=== PATIENT | female | born 1955 | race Caucasian/White ===

== ENCOUNTER 2021-11-17 08:27 | Day surgery (SDC) | payer MEDICARE, SELFPAY ==
[2021-11-11 16:27] VITALS: BMI 31.4
--- NOTE | 2021-11-14 18:05 | HP_ITS ---
DATE OF SERVICE: 11/17/2021 PREOPERATIVE DIAGNOSIS: Hallux abductovalgus deformity, left foot. PLANNED PROCEDURE: Left foot Shaniqua bunionectomy. PAST MEDICAL HISTORY: Significant for osteoarthritis; hip, back, and knee pain; broken bones; cancer; cataracts; diverticulosis; gallbladder disease; measles; mumps; chickenpox; kidney disease; liver disease; GERD; thyroid disease; and transfusions. CURRENT MEDICATIONS: Viactiv, Centrum Silver, atorvastatin, and levothyroxine. PAST SURGICAL HISTORY: Hemithyroidectomy in 2009, a lumpectomy, axillary dissection, and cataract surgery. FAMILY HISTORY: Significant for hypertension, heart disease, arthritis, diabetes, and cancer. SOCIAL HISTORY: The patient is a nonsmoker. She denies any illicit drug use. 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 ALLERGIES: PENICILLIN, MORPHINE, NASAL SPRAY, SIMVASTATIN, AND AMOXICILLIN.??? She was hospitalized at [facility] for esophagus problems and GI problems in 2020. REVIEW OF SYSTEMS: Within normal limits. HISTORY OF PRESENT ILLNESS: This is a 66-year-old female, who presents with aching and tenderness in her left great toe joint that has been present for several years that is gradually getting progressively worse; pain with standing, walking, any pressure. She has tried rest and changed shoes without any significant relief in symptoms. PHYSICAL EXAM: GENERAL: A pleasant, alert, well-nourished, well-developed, well-hydrated individual, who demonstrates proper attention to hygiene and body habitus. She is in no acute distress. She is oriented x3. NEUROLOGICAL: Intact sensorium. Pain sensation is normal. Vibratory sensation is intact. Pinprick sensation is normal. The patient denies any anesthesias, burning, paresthesias, or tingling bilaterally. VASCULAR: DP and PT pulses are 3/4 bilaterally. Capillary refill is immediate to all digits. Skin temperature, elasticity, and turgor are normal bilaterally. Pigmentation is normal and there is no edema. DERMATOLOGICAL: Normal texture, elasticity, and turgor. There are no masses. Interspaces are clear. ORTHOPEDIC: Muscle strength is 5/5 in a symmetrical fashion. There is a medially prominent 1st metatarsophalangeal joint with pain on palpation and lateral tracking of the 1st MPJ, is incompletely reducible most significantly on the left foot. X-rays which were taken at a previous visit reveal normal soft tissue density and bone structure consistent with patient's age and sex. There is an increased 1st intermetatarsal angle and hallux abductus angle consistent with bunion deformity, hypertrophy of the dorsal medial 1st metatarsal head without subchondral assisting and there is a tibial sesamoid position #6. PLAN: Patient has been discussed several types of bunion surgeries. We discussed the potential risks of surgery versus not having surgery; the potential surgical complications, which are including, but not limited to pain, swelling, bleeding, scarring, numbness, infection; delayed or nonhealing, floppy, unstable, or shortened toe; recurrence; failure of the procedure; over-correction leading to plantar flexor downward position of toe; need for further surgery as well as the possibility of loss of toe, foot, life, or limb. We discussed use of local and IV anesthesia and the usual postoperative course. No guarantees were given. The patient's questions were answered to her satisfaction. We decided on performing a Shaniqua bunionectomy to the left foot based on the patient's complaints, medical and social history, physical exam, and x-ray analysis. The patient would like to proceed with surgery. She will obtain preoperative labs and medical clearance for surgery and anesthesia from her primary care physician. She is made aware to stop any and all blood thinners including [id number] fish oil and aspirin at least 1 week prior to surgery. I made aware of the fact that driving may not be allowed during a portion of postop period and not to utilize any smoking, tobacco products. The patient deferred any narcotic pain medication and recommended staggering taking alternating Extra-Strength Tylenol and Motrin 800 mg as needed postoperatively. A prescription for 800 mg ibuprofen was sent to the patient's pharmacy. The patient will be partial weightbearing to the left foot in a surgical shoe and crutches, which she will be given at the hospital. Radha Escobar DPM LP/SHARON / [id number]
--- NOTE | 2021-11-16 10:55 | HO.ANESPROP2 ---
Documented by User: Génesis Gupta NP 11/16/21 10:58 HPI - Anesthesia Eval Consult details Narrative: 66yo F for Left Bunionectomy-Shaniqua Optimized per PCP [facility] Past Medical History Medical History Elevated cholesterol History of palpitations Hypothyroidism Kidney cysts Liver cyst Pre-diabetes Renal calculi Thoracic spondylosis Surgical History Surgical History Hx of breast biopsy Hx of breast surgery Hx of cataract extraction Hx of colonoscopy Hx of cystoscopy Hx of lithotripsy Hx of thyroidectomy Social History Social History Are you a primary child care associate teacher to a significant other at home: No Do you presently have visiting nurse or other home services: No Patient Tobacco Use Status: Never used Tobacco Are you DNR?: No Advance Directives: No Advance Directives Information Provided: Yes Advance Directives on File: No Recently lost weight without trying: No Nutrition Risks: No Nutritional Risk Meds Allergies Allergy/AdvReac Type Severity Reaction Status Date / Time amoxicillin Allergy Intermediate Rash Verified 11/17/21 08:49 morphine AdvReac Intermediate Nausea and Verified 11/17/21 08:49 Vomiting pravastatin AdvReac Intermediate Muscle Pain Verified 11/17/21 08:49 simvastatin AdvReac Intermediate Muscle Pain Verified 11/17/21 08:49 Active Medications: Current Medications Vancomycin HCl 1,000 mg/ (Sodium Chloride) 270 mls @ 270 mls/hr IV PREOP ONE Stop: 11/16/21 11:18 Home Medications Medication Instructions Recorded Confirmed Last Taken Type Viactiv DAILY 11/11/21 Unknown History atorvastatin 20 mg tablet 20 mg PO DAILY 11/11/21 11/11/21 Unknown History levothyroxine 100 mcg tablet 100 mcg PO DAILY 11/11/21 11/11/21 11/17/21 05:00 History multivitamin 1 tab PO DAILY 11/11/21 11/11/21 Unknown History Exam Exam Date and Time: November 16, 2021 1055 Height,Weight and Vital Signs: Height 5 ft 3.5 in Weight 81.647 kg Assessment and Plan Assessment Anesthesia Assessment: Chart Reviewed Documented by User: Harrison Britt MD 11/17/21 10:27 [facility] Past Medical History Medical History Elevated cholesterol History of palpitations Hypothyroidism Kidney cysts Liver cyst Pre-diabetes Renal calculi Thoracic spondylosis Family History Family history of problems with anesthesia: No Surgical History Surgical History Hx of breast biopsy Hx of breast surgery Hx of cataract extraction Hx of colonoscopy Hx of cystoscopy Hx of lithotripsy Hx of thyroidectomy History of Problems with Anesthesia: No Social History Social History Are you a primary child care associate teacher to a significant other at home: No Do you presently have visiting nurse or other home services: No Patient Tobacco Use Status: Never used Tobacco Are you DNR?: No Advance Directives: No Advance Directives Information Provided: Yes Advance Directives on File: No Recently lost weight without trying: No Nutrition Risks: No Nutritional Risk Meds Allergies Allergy/AdvReac Type Severity Reaction Status Date / Time amoxicillin Allergy Intermediate Rash Verified 11/17/21 08:49 morphine AdvReac Intermediate Nausea and Verified 11/17/21 08:49 Vomiting pravastatin AdvReac Intermediate Muscle Pain Verified 11/17/21 08:49 simvastatin AdvReac Intermediate Muscle Pain Verified 11/17/21 08:49 Home Medications Medication Instructions Recorded Confirmed Last Taken Type Viactiv DAILY 11/11/21 Unknown History atorvastatin 20 mg tablet 20 mg PO DAILY 11/11/21 11/11/21 Unknown History levothyroxine 100 mcg tablet 100 mcg PO DAILY 11/11/21 11/11/21 11/17/21 05:00 History multivitamin 1 tab PO DAILY 11/11/21 11/11/21 Unknown History Exam Airway Mallampati Class: III TM Dist: >3cm Neck ROM: Full Loose/Missing/Broken Teeth: Yes Assessment and Plan Assessment Anesthesia Assessment: Anesthesia Plan Discussed Final Anesthetic Review Family History of Problems with Anesthesia: No History of Problems with Anesthesia: No NPO: Yes ASA Class: II Final Preanesthetic Review: No Changes in Pt Med Stat, Meds/Allgs Chart Reviewed, Consent Obtained/Reviewed and Anes Risks/Benef Reviewed Patient Risk: Low Procedure Risk: Low Anesthetic Plan Anesthetic Plan: MAC: Disposition: Standard PACU
[2021-11-17 09:08] VITALS: BP 105/87; PULSE 58; RESP 16; TEMP 37.1; O2SAT 98
[2021-11-17] MEDS: Lactated Ringers 1,000 ML 100 ML IVCONT (09:32)
[2021-11-17] MEDS: vancomycin HCL 1,500 MG in 0.9 % Sodium Chloride 500 ML 333.33 MG IV (09:33)
--- NOTE | 2021-11-17 10:05 | MHC.SHP ---
Pre-Procedural Eval Section A Date of Service: 11/17/21 The patient is an INPATIENT: No Changes since office visit: No Cold of Flu in the past 2 weeks, No New Medical Problems, No Changes in Medication and No Patient answered all questions The History & Physical has been completed within 30 days and I have reviewed it.: Yes Section B Chief Complaint: hallux valgus Allergies: Allergies Allergy/AdvReac Type Severity Reaction Status Date / Time amoxicillin Allergy Intermediate Rash Verified 11/17/21 08:49 morphine AdvReac Intermediate Nausea and Verified 11/17/21 08:49 Vomiting pravastatin AdvReac Intermediate Muscle Pain Verified 11/17/21 08:49 simvastatin AdvReac Intermediate Muscle Pain Verified 11/17/21 08:49 Plan I have reviewed the history and physical and performed a pertinent physical examination on my patient. No changes have occurred unless specified.
--- NOTE | 2021-11-17 11:07 | P.BOP_ITS ---
Brief Operative Note Date of Service: 11/17/21 Pre-op diagnosis: Hallux abducto valgus left Post-op diagnosis: same Procedure: Left Shaniqua Bunionecotmy Implants: [place] asnis screws Surgeon: Radha Escobar Anesthesia: MAC and local Was an Promotions Associate used for this Procedure?: Yes Promotions Associate: Pankaj Villela Estimated blood loss (mL): 5 Tourniquet time (min): 19 Pathology: other Condition: stable Disposition: PACU
[2021-11-17 11:10] VITALS: BP 121/63; PULSE 71; RESP 14; TEMP 36.9; O2SAT 97
[2021-11-17 11:25] VITALS: BP 141/67; PULSE 58; RESP 16; TEMP 36.9; O2SAT 99
--- NOTE | 2021-11-17 12:17 | OP_ITS ---
SURGEON: Radha Escobar DPM PREOPERATIVE DIAGNOSIS: Hallux abductovalgus deformity, left foot. POSTOPERATIVE DIAGNOSIS: Hallux abductovalgus deformity, left foot. PROCEDURE PERFORMED: Left foot Shaniqua bunionectomy with sesamoidectomy, left foot. ESTIMATED BLOOD LOSS: Less than 5 cc. COMPLICATIONS: None. ANESTHESIA: Monitored anesthetic care, local consisting preoperatively of 18 cc of 1:1 mixture of 0.5% Marcaine plain and 2% lidocaine plain and postoperatively of 0.5% Marcaine plain and 1 cc of dexamethasone. HEMOSTASIS: Pneumatic ankle tourniquet set at 220 mmHg for 19 minutes. SUPERVISOR EDGING: Pankaj Villela DPM. SPECIMEN: Bone, left foot. INDICATIONS FOR SURGERY: The patient had a painful bunion deformity noted to the left foot that has been present for some time and has failed conservative therapies. The above-mentioned surgeries were discussed with detail with patient including risks, benefits, and possible complications. No guarantees were given. Written and oral informed consent were obtained. PROCEDURE IN DETAIL: Patient was brought to the operating room, placed on the operating table in the supine position. Following IV sedation, the above-mentioned local anesthetic was injected about the left foot in a regional field block fashion. Prior to receiving anesthesia 1 g of vancomycin was administered to the patient as a prophylactic preoperative antibiotic. The foot was exsanguinated and the pneumatic ankle tourniquet was inflated and attention was directed to the left foot after the foot was scrubbed, prepped, and draped in a sterile manner. Attention was directed to the first metatarsophalangeal joint where an incision was made approximately 8 cm in length. The incision was deepened down through subcutaneous tissue with great care being taken to retract vital neurovascular structures and all bleeders were cauterized as necessary. A medial capsulotomy was made medial and parallel to the extensor tendons and the soft tissues were freed about the head of the first metatarsal. Using a sagittal saw, the medial eminence was resected and passed from the operative site. Attention was then directed to the first interspace via the same incision where the deep transverse intermetatarsal ligament transected, the fibular sesamoidal ligament, and the head of the adductor tendon. The fibular sesamoid was noted to be extremely dislocated in the first interspace and was decided to be removed at this time to help the first metatarsal head drift into a more corrected position. The fibular sesamoid was then removed in total and passed from the operative site. Attention was then directed back medially where V-type osteotomy was created with the apex pointed proximally dorsally and proximally plantarly. The osteotomy was completed and the capital fragment was translocated laterally and impacted upon the first metatarsal shaft. The osteotomy site was temporarily fixated with a K-wire and then 2 [place] Asnis screws were inserted under standard technique, 16 mm in length. The remaining medial eminence was resected and passed from the operative site. All guidewires were removed from the osteotomy and there was noted be excellent correction of the bunion deformity as well as compression of the osteotomy site. The remaining medial eminence was resected using power instrumentation. The wound was irrigated with normal sterile saline. The capsular structures reapproximated with 3-0 Vicryl in a continuous running fashion. The subcutaneous tissues reapproximated with 4-0 Vicryl in continuous running fashion and 4-0 nylon was used in an interrupted suture technique. The [place] ZipLine was then placed over the incision. A postoperative injection of 0.5% Marcaine plain and 1 cc of dexamethasone was administered to the left foot and the left foot was then draped, dressed with Betadine soaked gauze, Adaptic, 4x4s, fluffs, Kerlix, cast padding, and an Mehdi bandage. Pneumatic ankle tourniquet was deflated and prompt capillary refill was noted to all 5 digits. The patient tolerated procedure and anesthesia well. She was transferred to the recovery room with vital signs stable and vascular status at preoperative levels. Following a period of postoperative recovery, the patient will be discharged home with written and oral postoperative instructions. Patient will follow up in my office for all postoperative followup care. She will be partial weightbearing to the left foot with crutches and a surgical shoe and will call my office for any questions or complaints. Radha Escobar DPM LP/SHARON / [id number] RIRI
== END 2021-11-17 12:50 | disposition home or self-care (01) ==
PROVIDERS: PCP Pediatrics; Visit Provider Podiatrist
PROC: (CPT 28292; principal; 2021-11-17 10:00)
DX: M20.12 Hallux valgus (acquired), left foot (principal); M21.612 Bunion of left foot; R73.03 Prediabetes; E78.00 Pure hypercholesterolemia, unspecified; E03.9 Hypothyroidism, unspecified; Z79.899 Other long term (current) drug therapy; Z88.0 Allergy status to penicillin; Z88.8 Allergy status to other drugs, medicaments and biological substances
CPT/HCPCS: 28296; 88304; 88311; C1713; J1100; J3370